=== PATIENT | male | born 1975 | race Caucasian/White ===

== ENCOUNTER 2021-06-05 16:19 | Outpatient (REF) | payer OTHER, SELFPAY ==
[2021-06-05 17:58] LABS: Vitamin B12 214 pg/mL (200-900)
[2021-06-06 09:22] LABS: Syphilis Screen Nonreactive (Nonreactive)
[2021-06-06 12:11] LABS: Lyme Abs Screen <0.90 index
== END 2021-06-05 16:20 | disposition home or self-care (01) ==
LOC: HO.LAB 16:19
PROVIDERS: Visit Provider Psychiatry & Neurology Neurology
DX: G93.40 Encephalopathy, unspecified (principal)
CPT/HCPCS: 36415; 82607; 86617; 86618; 86780